=== PATIENT | male | born 1980 | race Caucasian/White ===

== ENCOUNTER 2017-05-08 11:48 | Emergency (ER) | payer OTHER ==
[2017-05-08 12:00] VITALS: BMI 32.4
--- NOTE | 2017-05-08 12:13 | PDOC ---
History of Present Illness - General History Source: Patient Exam Limitations: No Limitations - History of Present Illness Initial Comments: 05/08/17 13:11 The patient is a 36 year old male, with no significant past medical history, who presents to the emergency department left knee pain s/p mechanical fall earlier this morning. 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 Patient reports associated left knee and calf pain, which is exacerbated with movement or when bearing weight. The patient denies any other trauma, head trauma, changes in vision, headache, dizziness, or loss of consciousness. He denies any fever, chills, or dizziness. He denies any nausea or vomiting. He denies any chest pain, shortness of breath, diaphoresis, or palpitations. Allergies: NKDA Past Surgical History: None reported. Social History: Occasional smoker. No ETOH or recreational drug use. <Emilia Harkins - Last Filed: 05/08/17 15:37> <Juan Jose Overton - Last Filed: 05/08/17 18:11> - General Chief Complaint: Injury Stated Complaint: FALL JOB INJURY Time Seen by Provider: 05/08/17 12:03 Past History <Emilia Harkins - Last Filed: 05/08/17 15:37> - Past Medical History COPD: No - Suicide/Smoking/Psychosocial Hx Smoking History: Current some day smoker Number of Cigarettes Smoked Daily: 3 Information on smoking cessation initiated: No Hx Alcohol Use: No Drug/Substance Use Hx: No Substance Use Type: None <Juan Jose Overton - Last Filed: 05/08/17 18:11> - Past Medical History Allergies/Adverse Reactions: Allergies Allergy/AdvReac Type Severity Reaction Status Date / Time No Known Allergies Allergy Verified 05/08/17 11:59 Home Medications: Ambulatory Orders NK [No Known Home Medication] 05/08/17 Review of Systems - Review of Systems Able to Perform ROS?: Yes Comments:: 05/08/17 13:11 A complete review of 10 out of 10 review of systems is taken and is negative apart from what is previously mentioned below and in the HPI. <Emilia Harkins - Last Filed: 05/08/17 15:37> *Physical Exam - Vital Signs Last Vital Signs Temp Pulse Resp BP Pulse Ox 97.7 F 79 18 138/91 100 05/08/17 11:52 05/08/17 11:52 05/08/17 11:52 05/08/17 11:52 05/08/17 11:52 - Physical Exam Comments: 05/08/17 13:11 Vitals: Triage vital signs reviewed General Appearance: No acute distress, well nourished, well developed Head: Atraumatic Neck: Supple; No nuchal rigidity Chest Wall: Nontender Cardiac: Regular rate and rhythm, no murmurs, no rubs, no gallops Lungs: Clear to auscultation bilateral, good air movement bilaterally Extremities: Mild left calf tenderness. Full range of motion to all extremities , no cyanosis, clubbing, or edema Skin: Warm and dry, no rashes or lesions, no rash, no petechiae Neuro: AOX3; Cranial Nerves 2-12 grossly intact, Strength intact to all extremities, Sensation intact to all extremities, gait normal <Emilia Harkins - Last Filed: 05/08/17 15:37> - Vital Signs Last Vital Signs Temp Pulse Resp BP Pulse Ox 97.7 F 79 18 138/91 100 05/08/17 11:52 05/08/17 11:52 05/08/17 11:52 05/08/17 11:52 05/08/17 11:52 <Juan Jose Overton - Last Filed: 05/08/17 18:11> ED Treatment Course - RADIOLOGY Radiograph Interpretation: 05/08/17 15:37 EXAM: Left Tibia/Fibula XR INTERPRETED BY: Dr. Rodas REVIEWED BY: Dr. Overton IMPRESSION: No acute pathology. EXAM: Left Knee XR INTERPRETED BY: Dr. Rodas REVIEWED BY: Dr. Overton IMPRESSION: No acute pathology. - Medications Given in the ED: ED Medications Discontinued Medications Generic Name Dose Route Start Last Admin Trade Name Freq PRN Reason Stop Dose Admin Ibuprofen 600 mg 05/08/17 12:14 05/08/17 12:22 Motrin - PO 05/08/17 12:15 600 mg ONCE ONE Administration Tramadol HCl 50 mg 05/08/17 12:14 05/08/17 12:23 Ultram - PO 05/08/17 12:15 50 mg ONCE ONE Administration <Emilia Harkins - Last Filed: 05/08/17 15:37> Medical Decision Making - Medical Decision Making 05/08/17 14:26 Well-appearing no apparent distress chemical fall hit his leg on the way down from the fall. Pain with bearing weight. Pain is maximally in the soft tissue of the anterior portion of his calf. On examination his Achilles is intact his distal neurovascular exam is intact. There is no significant bony tenderness is good range of motion but with pain. The it appears that predominantly his injuries are related to contusion not fracture His x-rays are negative for acute pathology. Patient provided with crutches strict instructions elevate ice and rest. If no improvement in symptoms within 2 -3 days he will follow-up with Dr. mayo. Return to emergency department for any severe worsening symptoms or for any concerns. <Juan Jose Overton - Last Filed: 05/08/17 18:11> *DC/Admit/Observation/Transfer - Attestations Scribe Attestion: 05/08/17 13:12 Documentation prepared by Emilia Harkins, acting as biomedical specialist for Juan Jose Overton MD. <Emilia Harkins - Last Filed: 05/08/17 15:37> - Discharge Dispostion Admit: No <Juan Jose Overton - Last Filed: 05/08/17 18:11> Diagnosis at time of Disposition: Lower extremity injury Qualifiers: Encounter type: initial encounter Laterality: left Qualified Code(s): S89.92XA - Unspecified injury of left lower leg, initial encounter - Discharge Dispostion Disposition: HOME - Referrals Referrals: Alexandre Arnold MD [Staff Physician] - - Patient Instructions Printed Discharge Instructions: DI for Contusion Additional Instructions: Ice affected leg 20 minutes on 20 minutes off. Take [id number] Aleve 2 tabs twice a day. Keep leg elevated. Use crutches while ambulating. Stay home from work for 2 days. If still having pain after 2-3 days Follow-up with Dr. Arnold orthopedics's week. Return to the emergency department for any severe uncontrollable pain loss of sensation if your foot turns blue or for any concerns. - Post Discharge Activity Forms/Work/School Notes: Back to Work
[2017-05-08] MEDS ORDERED: IBUPROFEN 600 MG TABLET (FP) PO ONE ×2 (12:14→12:19)
[2017-05-08] MEDS ORDERED: traMADol HCL 50 MG TABLET PO ONE (12:14)
[2017-05-08] MEDS ORDERED: traMADol HCL 50 MG TABLET ONE (12:19)
[2017-05-08 15:01] VITALS: BP 121/79; PULSE 89; TEMP 98
== END 2017-05-08 15:01 | disposition home or self-care (01) ==
LOC: JER 11:48
DX: S89.82XA Other specified injuries of left lower leg, initial encounter (principal); W31.89XA Contact with other specified machinery, initial encounter; Y93.H3 Activity, building and construction; Y92.69 Other specified industrial and construction area as the place of occurrence of the external cause; Y99.0 Civilian activity done for income or pay
CPT/HCPCS: 73562-TC-LT; 73590-TC-LT; 99282-25